=== PATIENT | male | born 1930 | race Caucasian/White ===

== ENCOUNTER → 2016-05-08 | Outpatient (CLI) | payer OTHER ==
[~2016-05-08] MED LIST: ASPIRIN EC81 MG PO; COREG6.25 MG PO; FEOSOL325 MG PO; HYDRALAZINE HCL25 MG PO; HYTRIN CAP 5 MG5 MG PO; IMDUR ER TAB 6060 MG PO; LEVEMIR100 UNIT/1 SQ; LIPITOR TAB 2020 MG PO; LISINOPRIL10 MG PO; LISINOPRIL30 MG PO; NEURONTIN 100100 MG PO; NORVASC10 MG PO; PROTONIX40 MG PO; SYNTHROID150 MCG PO; VITAMIN D2000 UNI1 PO
== END ==
LOC: KOH-I 04-30 11:00
DX: N20.0 Calculus of kidney (principal); N28.89 Other specified disorders of kidney and ureter; D61.818 Other pancytopenia; D51.8 Other vitamin B12 deficiency anemias; D64.9 Anemia, unspecified; R16.1 Splenomegaly, not elsewhere classified
CPT/HCPCS: 74176

== ENCOUNTER → 2016-05-19 | Outpatient (CLI) | payer OTHER | LOC: RAD 11:48 | DX: J84.89 Other specified interstitial pulmonary diseases (principal); R91.8 Other nonspecific abnormal finding of lung field | CPT/HCPCS: 71020 ==

== ENCOUNTER 2016-06-17 19:41 | Emergency (ER) | payer OTHER ==
[2016-06-17 22:28] LABS: HEMOGLOBIN 7.1 gm/dl (14.0-17.5); RED BLOOD COUNT 2.85 M/UL (4.20-5.50); WHITE BLOOD COUNT 2.2 K/UL (4.5-11.0)
[2016-06-18 02:21] LABS: HEMOGLOBIN 7.5 gm/dl (14.0-17.5)
== END 2016-06-18 13:35 | disposition short-term general hospital (02) ==
LOC: ER1 19:41
PROVIDERS: Physician Assistant; Specialist/Technologist Athletic Trainer
DX: N17.9 Acute kidney failure, unspecified (principal); D63.8 Anemia in other chronic diseases classified elsewhere; E11.22 Type 2 diabetes mellitus with diabetic chronic kidney disease; I12.0 Hypertensive chronic kidney disease with stage 5 chronic kidney disease or end stage renal disease; N18.6 End stage renal disease; H66.90 Otitis media, unspecified, unspecified ear; R55 Syncope and collapse; R00.1 Bradycardia, unspecified; R19.5 Other fecal abnormalities; I25.10 Atherosclerotic heart disease of native coronary artery without angina pectoris; I25.2 Old myocardial infarction; E03.9 Hypothyroidism, unspecified; Z90.49 Acquired absence of other specified parts of digestive tract; Z79.4 Long term (current) use of insulin; Z79.82 Long term (current) use of aspirin; Z79.899 Other long term (current) drug therapy
CPT/HCPCS: 36415; 36430; 70450; 71010; 80053; 81001; 82272; 82550; 82553; 82962; 83874; 84484; 85014; 85018; 85025; 86850; 86900; 86901; 86920; 93005; 96365; 96375; 96376; 99285; C9113; J7040; P9016

== ENCOUNTER → 2016-06-23 | Outpatient (CLI) | payer OTHER | LOC: RAD 12:19 | DX: J84.89 Other specified interstitial pulmonary diseases (principal); J98.11 Atelectasis | CPT/HCPCS: 71020 ==